=== PATIENT | female | born 1955 | race Caucasian/White ===

== ENCOUNTER → 2023-09-04 | Emergency (ER) | payer OTHER ==
[~2023-09-04] MED LIST: DIAZEPAM 5 MG TABLET ONE; HYDROCODONE/APAP 5/325 MG TAB ONE
[2023-09-04 10:36] LABS: Specific Gravity 1.006 (1.005-1.030); Urine Bilirubin NEGATIVE (Negative); Urine Blood Negative (Negative); Urine Clarity Clear (Clear); Urine Color Colorless (Yellow); Urine Glucose NEGATIVE (Negative); Urine Protein NEGATIVE (Negative); Urine Urobilinogen Normal (Normal)
--- NOTE | 2023-09-04 10:51 | RAD REPORT ---
EXAM DESCRIPTION: RAD - Lumbar Spine 3 Views - 09/04/2023 10:41 am CLINICAL HISTORY: PAIN Radiculopathy COMPARISON: No comparisons FINDINGS: Vertebral body heights appear maintained. No compression fracture noted. Prominent vacuum disc degeneration with posterior osteophyte at L5-S1. Mild disc thinning with small endplate osteophy amy throughout the lumbar spine. No spondylolysis or spondylolisthesis. Nonspecific rounded calcification in the left upper quadrant. Aortic atherosclerosis. IMPRESSION: Prominent spondylosis is noted at L5-S1. No acute lumbar spine finding.
--- NOTE | 2023-09-04 11:11 | ER ---
Nurse's Notes [facility] Name: Sridevi Luke Age: 67 yrs Sex: Female : 1955 Arrival Date: 09/04/2023 Time: 09:56 Bed 11 Private MD: Diagnosis: Low back pain Presentation: 09/03 10:12 Chief complaint: Patient states: left low back pain that began 1 week ago. Pt also aa5 reports nausea. Coronavirus screen: At this time, the client does not indicate any symptoms associated with coronavirus-19. Ebola Screen: Patient denies travel to an Ebola-affected area in the 21 days before illness onset. Initial Sepsis Screen: Does the patient meet any 2 criteria? No. Patient's initial sepsis screen is negative. Does the patient have a suspected source of infection? No. Patient's initial sepsis screen is negative. Risk Assessment: Do you want to hurt yourself or someone else? Patient reports no desire to harm self or others. Onset of symptoms was August 2023. 10:12 Method Of Arrival: Wheelchair aa5 10:12 Acuity: CHARLENE 4 aa5 Historical: - Allergies: 10:13 No Known Allergies; aa5 - Home Meds: 10:13 Methotrexate Sodium Oral [Active]; aa5 - PMHx: 10:13 Arthritis; aa5 - PSHx: 10:13 None; aa5 - Immunization history:: Adult Immunizations unknown. - Social history:: Smoking status: Patient reports the use of cigarette tobacco products, smokes one pack cigarettes per day. Screenin:25 [facility] ED Fall Risk Assessment (Adult) History of falling in the last 3 months, aa5 including since admission No falls in past 3 months (0 pts) Confusion or Disorientation No (0 pts) Intoxicated or Sedated No (0 pts) Impaired Gait No (0 pts) Mobility Assist Device Used No (0 pt) Altered Elimination No (0 pt) Score/Fall Risk Level 0 - 2 = Low Risk Oriented to surroundings, Maintained a safe environment, Educated pt \T\ family on fall prevention, incl call for assistance when getting out of bed. Abuse screen: Denies threats or abuse. Nutritional screening: No deficits noted. Tuberculosis screening: No symptoms or risk factors identified. Assessment: 10:25 General: Appears uncomfortable, Behavior is calm, cooperative. Pain: Complains of pain aa5 in left low back Pain currently is 8 out of 10 on a pain scale. Quality of pain is described as sharp, Is continuous, Aggravated by increased activity, repositioning. Neuro: Level of Consciousness is awake, alert, obeys commands, Oriented to person, place, time, situation. Cardiovascular: Patient's skin is warm and dry. Respiratory: Airway is patent Respiratory effort is even, unlabored, Respiratory pattern is regular, symmetrical. GI: No signs and/or symptoms were reported involving the gastrointestinal system. : No signs and/or symptoms were reported regarding the genitourinary system. EENT: No signs and/or symptoms were reported regarding the EENT system. Derm: Skin is pink, warm \T\ dry. Musculoskeletal: Range of motion: intact in all extremities. 11:31 Reassessment: Patient appears in no apparent distress at this time. Patient and/or hb family updated on plan of care and expected duration. Pain level reassessed. Patient is alert, oriented x 3, equal unlabored respirations, skin warm/dry/pink. Vital Signs: 10:12 BP 147 / 53; Pulse 71; Resp 16 S; Temp 97.5(TE); Pulse Ox 98% on R/A; aa5 11:31 BP 136 / 76; Pulse 68; Resp 16; Pulse Ox 100% on R/A; Pain 7/10; hb 11:31 Pain Scale: Adult hb ED Course: 10:01 Patient arrived in ED. ra3 10:01 Smooth Darden DO is Attending Physician. ms3 10:12 Arm band placed on. aa5 10:12 Patient has correct armband on for positive identification. Bed in low position. Call aa5 light in reach. Side rails up X 1. Adult w/ patient. 10:13 Triage completed. aa5 10:25 Client placed on continuous cardiac and pulse oximetry monitoring. NIBP monitoring hb applied. 10:30 Kimberly Samaniego, RN is Primary Nurse. aa5 10:30 Urine collected: clean catch specimen, clear, sent to lab. aa5 10:43 Lumbar Spine (3 Views) XRAY In Process Unspecified. EDMS 10:45 No provider procedures requiring assistance completed. aa5 11:10 Gerald Jurado DO is Referral Physician. ms3 11:31 Provided Education on: medications, follow up. hb 11:31 Patient did not have IV access during this emergency room visit. 11:33 Primary Nurse role handed off by Kimberly Samaniego RN 11:33 Cristin Cleary, RN is Primary Nurse. hb Administered Medications: 10:30 Drug: HYDROcodone-acetaminophen PO 5 mg-325 mg 1 tabs PO once Route: PO; aa5 11:32 Follow up: Response: Pain is decreased hb 10:30 Drug: Diazepam PO 5 mg PO once Route: PO; aa5 11:32 Follow up: Response: Pain is decreased Medication: 10:45 VIS not applicable for this client. aa5 Outcome: 11:10 Discharge ordered by MD. ms3 11:31 Discharged to home via wheelchair, with family, 11:31 Condition: stable 11:31 Discharge instructions given to patient, family, Instructed on discharge instructions, follow up and referral plans. medication usage, Demonstrated understanding of instructions, follow-up care, medications, Prescriptions given X 1, 11:33 Patient left the ED. Signatures: Dispatcher [employer] EDMS Kimberly Samaniego, ABY RN aa5 Cristin Cleary, RN RN Smooth Darden DO DO ms3 Marie Sanchez ra3
--- NOTE | 2023-09-04 11:11 | EDPHYS ---
Physician Documentation [facility] Name: Sridevi Luke Age: 67 yrs Sex: Female : 1955 Arrival Date: 09/04/2023 Time: 09:56 Bed 11 Private MD: ED Physician Smooth Darden HPI: 09/03 10:12 This 67 yrs old Female presents to ER via Wheelchair with complaints of Low Back Pain. ms3 10:12 67-year-old female with past medical history of rheumatoid arthritis and osteoporosis ms3 presents to the emergency department for back pain that is been ongoing for 1 week. Patient rates pain 10/10 states pain is located in the left lower back and radiates down her left leg. Patient denies any alleviating or inciting factors. Patient states she is taken Aleve, diclofenac, Tylenol without relief. Patient denies incontinence, saddle anesthesia, fevers, chills.. Historical: - Allergies: 10:13 No Known Allergies; aa5 - Home Meds: 10:13 Methotrexate Sodium Oral [Active]; aa5 - PMHx: 10:13 Arthritis; aa5 - PSHx: 10:13 None; aa5 - Immunization history:: Adult Immunizations unknown. - Social history:: Smoking status: Patient reports the use of cigarette tobacco products, smokes one pack cigarettes per day. ROS: 10:12 Constitutional: Negative for fever, and chills. ENT: Negative for injury, pain, and ms3 discharge, Neck: Negative for injury, pain, and swelling, Cardiovascular: Negative for chest pain, and palpitations. Respiratory: Negative for shortness of breath, cough, wheezing, and pleuritic chest pain, Abdomen/GI: Negative for abdominal pain, nausea, vomiting, diarrhea, and constipation, 10:12 Back: Positive for low back pain, Exam: 10:12 Constitutional: This is a well developed, well nourished patient who is awake, alert, ms3 and in no acute distress. Head/Face: Normocephalic, atraumatic. Neck: Trachea midline, no cervical lymphadenopathy. Supple, full range of motion without nuchal rigidity, or vertebral point tenderness. No Meningismus. Chest/axilla: Normal chest wall appearance and motion. Nontender with no deformity. Cardiovascular: Regular rate and rhythm with a normal S1 and S2. No gallops, murmurs, or rubs. Normal PMI, no JVD. No pulse deficits. Respiratory: Lungs have equal breath sounds bilaterally, clear to auscultation and percussion. No rales, rhonchi or wheezes noted. No increased work of breathing, no retractions or nasal flaring. Abdomen/GI: Soft, non-tender, with normal bowel sounds. No distension or tympany. No guarding or rebound. No evidence of tenderness throughout. 10:12 Back: pain, that is moderate, ROM is painful, normal spinal alignment noted, CVA tenderness, is absent, vertebral tenderness, is not appreciated, muscle spasm, is appreciated in the left low back, Vital Signs: 10:12 BP 147 / 53; Pulse 71; Resp 16 S; Temp 97.5(TE); Pulse Ox 98% on R/A; aa5 11:31 BP 136 / 76; Pulse 68; Resp 16; Pulse Ox 100% on R/A; Pain 7/10; hb 11:31 Pain Scale: Adult hb MDM: 10:11 Patient medically screened. ms3 10:12 Differential diagnosis: arthritis, strain, fracture. ms3 11:12 Data reviewed: vital signs, nurses notes, lab test result(s), radiologic studies, and ms3 as a result, I will discharge patient. Independent interpretation of the following test(s) in the Emergency Department X-Ray: My interpretation is Lumbar x-ray images reviewed by me do not reveal fracture. Counseling: I had a detailed discussion with the patient and/or guardian regarding the historical points, exam findings, and any diagnostic results supporting the discharge/admit diagnosis, lab results, radiology results, the need for outpatient follow up, to return to the emergency department if symptoms worsen or persist or if there are any questions or concerns that arise at home. Response to treatment: the patient's symptoms have markedly improved after treatment, and as a result, I will discharge patient. Special discussion: I discussed with the patient/guardian in detail that at this point there is no indication for admission to the hospital. It is understood, however, that if the symptoms persist or worsen the patient needs to return immediately for re-evaluation. ED course: On reevaluation patient improved, patient is alert and orient x 4, no apparent distress, nontoxic-appearing, ambulatory in emergency room, speaking full sentences. Patient to follow-up with primary care physician in 2 to 3 days. Patient or stands and agrees with plan. All questions were answered. Return precautions discussed include worsening symptoms, numbness, bladder or bowel incontinence, fevers or chills, or any other concerns. 09/03 10:12 Order name: Urinalysis w/ reflexes; Complete Time: 10:47 ms3 09/03 10:12 Order name: Lumbar Spine (3 Views) XRAY; Complete Time: 11:04 ms3 Administered Medications: 10:30 Drug: HYDROcodone-acetaminophen PO 5 mg-325 mg 1 tabs PO once Route: PO; aa5 11:32 Follow up: Response: Pain is decreased hb 10:30 Drug: Diazepam PO 5 mg PO once Route: PO; aa5 11:32 Follow up: Response: Pain is decreased hb Disposition Summary: 09/04/23 11:10 Discharge Ordered Notes: Location: Home ms3 Condition: Stable ms3 Diagnosis - Low back pain ms3 Followup: ms3 - With: Gerald Jurado DO - When: 2 - 3 days - Reason: Recheck today's complaints Discharge Instructions: - Discharge Summary Sheet ms3 - Acute Back Pain, Adult ms3 Forms: - Work release form hb - Medication Reconciliation Form ms3 - Thank You Letter ms3 - Antibiotic Education ms3 - Prescription Opioid Use ms3 - Patient Portal Instructions ms3 - Leadership Thank You Letter ms3 Prescriptions: - Cyclobenzaprine 10 mg Oral Tablet - take 1 tablet ORAL route every 8 hours As needed; 30 tablet; Refills: 0, ms3 Product Selection Permitted Signatures: Dispatcher [employer] EDMS Kimberly Samaniego, RN RN aa5 Smooth Darden DO DO ms3 Cristin Cleary RN
[2023-09-04 11:58] VITALS: BP 136/76; TEMP 97.5; O2SAT 100
== END ==
LOC: ER 09:56
DX: M54.50 Low back pain, unspecified (principal); F17.210 Nicotine dependence, cigarettes, uncomplicated
CPT/HCPCS: 72100; 81003; 99284